=== PATIENT | female | born 1960 | race Caucasian/White ===

== ENCOUNTER → 2017-09-15 | Outpatient (CLI) | payer OTHER ==
--- NOTE | 2017-09-15 09:36 | RAD ---
DATE: September 15, 2017 EXAM: MAMMO TIN SCREENING BILATERAL HISTORY: Screening study. COMPARISON: April 11, 2014 and September 09, 2016. This study was interpreted with the benefit of Computerized Aided Detection (CAD). 2-D digital mammographic views of both breasts were performed in the CC and MLO projections. 3-D digital tomosynthesis of both breasts were performed in the CC and MLO projections and reviewed on a computer workstation. FINDINGS: The breast parenchyma is scattered and mildly dense. There are no dominant suspicious masses, suspicious microcalcifications or evidence of architectural distortion. IMPRESSION: No mammographic indicators for malignancy. BI-RADS CATEGORY: 1 NEGATIVE RECOMMENDED FOLLOW-UP: 12M 12 MONTH FOLLOW-UP PQRS compliance statement: Patient information was entered into a reminder system with a target due date September 16, 2018 for the next mammogram. Mammography is a sensitive method for finding small breast cancers, but it does not detect them all and is not a substitute for careful clinical examination. A negative mammogram does not negate a clinically suspicious finding and should not result in delay in biopsying a clinically suspicious abnormality. "Our facility is accredited by the [employer] Mammography [employer]." The patient's breast density may affect the ability of mammography to detect breast cancer. There are 4 categories of breast density, A, B, C and D. Breast density A means that most of the breast tissue is replaced with adipose tissue and therefore is not dense. Breast density B means that the breast tissue is mildly dense and scattered. Breast density C means that the breast tissue is heterogeneously dense. Breast density D means that the breast tissue is very dense. Breast densities especially C and D may decrease the sensitivity of mammography to detect breast cancer. Therefore, the patient may benefit from 3-D breast mammography (3D breast tomography) as a part of their screening mammogram. Insurance may or may not pay for this additional imaging. The patient's breast density based on today's mammogram is category B.
== END | disposition home or self-care (01) ==
LOC: MAMMO 08:12
PROVIDERS: ATTEND Nurse Practitioner Family
DX: Z12.31 Encounter for screening mammogram for malignant neoplasm of breast (principal)
CPT/HCPCS: 77063; 77067

== ENCOUNTER → 2018-05-01 | Outpatient (CLI) | payer OTHER ==
--- NOTE | 2018-05-01 12:31 | RAD ---
Complete abdominal ultrasound 05/01/2018 INDICATION: Right upper quadrant pain COMPARISON STUDY: None available Discussion: Ultrasound evaluation of the abdomen was performed. Static images are submitted to PACS. Visualized pancreas is unremarkable. Visualized aorta and IVC are unremarkable. A small echogenic focus is seen along the dependent portion of the gallbladder. This appears to be nonmobile and most likely represents a small cholesterol polyp. A small adherent stone is also possible. No wall thickening, or pericholecystic fluid is seen. Sonographic Garcia's sign is negative. The common bile duct is nondilated at 3 mm. The liver is normal in echotexture. The liver is normal in size measuring 14.4 cm. The right kidney measures 10.2 cm in diameter. There is a multilobulated mass in the mid right kidney which appears to measure up to 5 cm in diameter. Mass are difficult to determine based on provided imaging. Left kidney measures 10.4 cm in length. Prominent lobulation versus mass seen in the mid left kidney measuring approximately 2.7 cm in diameter. No evidence of hydronephrosis or obstructive uropathy is seen involving either kidney. No definitive nephrolithiasis is seen The spleen is normal in size measuring 9.1 cm in length. IMPRESSION: 1.Somewhat poorly delineated multilobulated mass in the mid right kidney. In aggregate the mass appears to measure up to 5 cm in diameter. Malignancy not excluded. 2.7 cm mass versus prominent lobulation in the mid left kidney. Contrast enhanced CT of the abdomen and pelvis is recommended for further evaluation. 2. Small gallbladder polyp versus nonmobile stone Electronically signed by: Praveen Xie MD (05/01/2018 12:27 PM) [id number]
--- NOTE | 2018-05-01 12:44 | RAD ---
EXAM: Pelvic sonogram. HISTORY: Right lower quadrant pain. TECHNIQUE: Transabdominal and transvaginal sonographic imaging of the pelvis was performed. COMPARISON: None. FINDINGS: The uterus measures 8.5 x 4.7 x 4.5 cm. There is a uterine fibroid measuring 3.3 cm within the uterine fundus. There are nabothian cysts within the cervix. The endometrial stripe measures 2 mm in thickness. The ovaries are normal in size and not well seen. There is no pelvic free fluid. IMPRESSION: 1. 3.3 cm uterine fibroid. 2. Nabothian cysts within the cervix. Electronically signed by: Yara Hartmann MD (05/01/2018 12:40 PM) [place] [id number]
== END | disposition home or self-care (01) ==
LOC: US 09:02
PROVIDERS: ATTEND Family Medicine
DX: N28.89 Other specified disorders of kidney and ureter (principal); D25.9 Leiomyoma of uterus, unspecified; N88.8 Other specified noninflammatory disorders of cervix uteri
CPT/HCPCS: 76700; 76830; 76856